=== PATIENT | female | born 1955 | race Two or more races ===

== ENCOUNTER 2016-10-30 06:04 | Day surgery (SDC) | payer MEDICARE, MEDICAID ==
[~2016-10-30] VITALS: Ht 165.1 cm; Wt 53.0 kg
[~2016-10-30 06:04] MED LIST: ASPI-621 PO; CALC667C PO; CARV-39 PO; ERGO500017 PO; FERR325T20 PO; HYDR-3343 PO; LISI40TA PO; METF500T4 PO
[2016-10-30 06:47] VITALS: BP 196/82
[2016-10-30] MEDS ORDERED: SODIUM CHLORIDE 0.9% 1,000 ML IV SCH (06:47)
[2016-10-30 06:50] VITALS: BP 196/82
[2016-10-30] MEDS ORDERED: NIFE10CA2 PO (06:50)
[2016-10-30] MEDS ORDERED: FOLI0.8T35 PO (06:50)
[2016-10-30] MEDS ORDERED: CHOL200012 PO (06:50)
[2016-10-30] MEDS ORDERED: HEPARIN 5,000 UNITS/ML, 1ML ONE (06:56)
[2016-10-30] MEDS ORDERED: PAPAVERINE 30 MG/ML, 2ML ONE (06:57)
[2016-10-30] MEDS ORDERED: BUPIVACAINE/PF-EPI 0.5% 1:200K ONE (06:57)
[2016-10-30] MEDS ORDERED: HEPARIN 1,000 UNITS/ML, 10ML ONE (06:57)
[2016-10-30] MEDS ORDERED: THROMBIN 20,000 UNIT VIAL TP ONE (06:57)
[2016-10-30] MEDS ORDERED: PROTAMINE SULFATE 10 MG/ML, 5ML ONE ×2 (06:57→08:51)
[2016-10-30] MEDS ORDERED: BACITRACIN 50,000 UNIT ONE (06:58)
[2016-10-30 07:12] LABS: BLOOD UREA NITROGEN 35 mg/dL (7-18)
[2016-10-30] MEDS ORDERED: FENTANYL PF 250 MCG/5ML ONE (07:46)
[2016-10-30] MEDS ORDERED: MIDAZOLAM 1 MG/ML, 2ML ONE (07:46)
[2016-10-30] MEDS ORDERED: MEPERIDINE/PF 25MG/0.5ML IVPush PRN (08:30)
[2016-10-30] MEDS ORDERED: FENTANYL PF 100 MCG/2ML IV PRN (08:30)
[2016-10-30] MEDS ORDERED: PROMETHAZINE 25 MG/ML, 1ML IV PRN (08:30)
[2016-10-30] MEDS ORDERED: HYDROmorphone 1 MG/ML, 1ML IV PRN (08:30)
[2016-10-30] MEDS ORDERED: OXYcodone 5 MG/5 ML ORAL.SOL UDC PO PRN (08:30)
[2016-10-30] MEDS ORDERED: ONDANSETRON 2MG/ML, 2ML IVPush PRN (08:30)
[2016-10-30] MEDS ORDERED: LABETALOL 5MG/ML, 20ML IV PRN (08:30)
[2016-10-30] MEDS ORDERED: hydrALAzine 20 MG/ML, 1ML IV PRN (08:30)
[2016-10-30] MEDS ORDERED: CEFAZOLIN 1,000 MG ONE (08:51)
[2016-10-30] MEDS ORDERED: OXYcodone 5 MG/5 ML ORAL.SOL UDC ONE (10:32)
== END 2016-10-30 12:25 | disposition home or self-care (01) ==
LOC: OUT 06:04
PROVIDERS: ATTEND Surgery Vascular Surgery
DX: I12.0 Hypertensive chronic kidney disease with stage 5 chronic kidney disease or end stage renal disease (principal); N18.6 End stage renal disease; Z99.2 Dependence on renal dialysis
CPT/HCPCS: 36415; 36821; 80048; 85025; 93005; C1760; J0690; J1644; J2250; J2720; J3010; J7030; J2440